=== PATIENT | female | born 1975 | race Caucasian/White ===

== ENCOUNTER → 2016-10-14 | Outpatient (CLI) | payer BC ==
[~2016-10-14] MED LIST: DULERA1 ARO IH; MIRENA52 MG IY; PROAIR HFA0.09 MG/AC IH
== END ==
LOC: MC.RAD 10-04 16:00
DX: Z12.31 Encounter for screening mammogram for malignant neoplasm of breast (principal)

== ENCOUNTER 2017-04-15 08:52 | Emergency (ER) | payer BC ==
[~2017-04-15] VITALS: Ht 162.6 cm; Wt 65.9 kg
[2017-04-15 08:54] VITALS: BP 122/73; PULSE 73; TEMP 98.7
[2017-04-15] MEDS ORDERED: DULERA1 ARO IH (08:59)
[2017-04-15] MEDS ORDERED: MIRENA52 MG IY (08:59)
[2017-04-15] MEDS ORDERED: PROAIR HFA0.09 MG/AC IH (08:59)
== END 2017-04-15 09:54 | disposition home or self-care (01) ==
LOC: COL.ER 08:52
DX: T82.898A Other specified complication of vascular prosthetic devices, implants and grafts, initial encounter (principal); L76.22 Postprocedural hemorrhage of skin and subcutaneous tissue following other procedure